=== PATIENT | female | born 1990 | race Hispanic/Latino ===

== ENCOUNTER → 2018-05-14 | Day surgery (SDC) | payer OTHER ==
[2018-05-13 17:27] LABS: Urine Appearance CLOUDY; Urine Bilirubin NEGATIVE (NEG); Urine Blood NEGATIVE (NEG); Urine Color YELLOW; Urine Glucose NEGATIVE (NEG); Urine Protein NEGATIVE (NEG); Urine Specific Gravity 1.015 (1.005-1.030); Urine Urobilinogen 0.2 mg/dL (0.2-1.0); Urine pH 8.5 (5.0-7.0)
[2018-05-13 17:29] LABS: Urine Microscopic Reflex NO UMIC
[2018-05-13 17:30] LABS: Specific Gravity 1.015 (1.005-1.030)
[2018-05-13 17:30] LABS: Absolute Lymphocytes (CBC) 2.2 K/uL (0.7-4.9); Absolute Monocytes 0.3 K/uL (0.1-1.3); Absolute Neutrophil 4.3 K/uL (1.8-8.0); Basophils % 0.6 % (0-1.3); Hematocrit 34.9 % (36.0-45.0); Lymphocytes % 32.1 % (15.3-44.8); MPV 7.6 fL (7.6-11.3); Protime INR 1.05; RBC Red Blood Cell Count 3.81 M/uL (3.86-4.86)
[~2018-05-14] MED LIST: CEFAZOLIN/SWI 1gm 1 GM/10 ML SYR ONE; DEXAMETHASONE 4 MG/ML VIAL ONE; FENTANYL CITR 100 MCG/2 ML ONE; KETOROLAC 30 MG/ML INJ ONE; LIDOCAINE 1% MPF 5 ML VIAL ONE; LIDOCAINE 1.5% W/EPI AMP 5 ML ONE; MEPERIDINE HCL 50 MG/ML AMP ONE; MIDAZOLAM HCL 2 MG/2 ML INJ ONE; ONDANSETRON 4 MG/2 ML VIAL ONE; PROPOFOL 200 MG/20 ML VIAL IV ONE; Ringers Lactate 1,000 ML IV ONE; STRONG IODINE SOLN 15 ML BTL TOP ONE
--- NOTE | 2018-05-14 08:49 | PREOPHP ---
Date of Admission: 05/14/2018 History Of Present Illness: This is a 28-year-old female with cervical dysplasia for LEEP procedure. Full discussion concerning procedure and possible complications, including infection, failure to ge t all of the tissue removed, amputation of her IUD strings, which there is always a possibility. The patient knows fully well these do not constitute all the possible problems that could occur during o r following the surgery. Blood clots in the legs, also discussed. Family History: Basically noncontributory as far as this admission is concerned. Maternal grandmoth er with cancer of the stomach. Past Surgical History: The patient has had general anesthetic during breast surgery, wisdom teeth an d has never had any kind of anesthetic problems. Social History: Does not smoke. Physical Examination: HEENT: Clear. Pupils equal, round, and reactive to light and accommodation. Conjunctivae well perf used. No oral, lingual, or buccal lesions. Chest: Clear. Lungs: Clear. Heart: Without murmurs, thrills, heaves, or rubs. Breasts: Not examined on this visit. Extremities: Clear without edema, cyanosis, or clubbing. : Cervix with no obvious lesions. Assessment/plan: The patient does have 2 IUD strings. She has had the IUD for 3 years, knows that i f we amputate the strings that it will not affect the functioning of the IUD, but could make it more difficult to retrieve once it is time to come out. Biopsy was taken at the 12 o'clock area. We will make sure that area is the major part where we had the biopsy taken. DEREK/DAYRON Voice ID: [id number]
--- NOTE | 2018-05-14 18:15 | OP ---
Surgeon: Cesar Gonzales MD Preoperative Diagnosis: Cervical dysplasia, TI 2-3. Loop electrosurgical procedure. Indications: Full preoperative counseling concerning procedure and possible complications, including infection, blood loss, anesthetic complications, injury to bladder, bowel, ureter, postoperative com plications, clots in legs, and pneumonia. The patient knows fully well this does not constitute all the possible problems that could occur during or following surgery and knows that depending upon the LEEP specimen, she may require further followup and treatment. Anesthesia: General anesthesia endotracheal intubation. Procedure In Detail: Time-out performed, after prepping and draping and grounding pads placed. A LE EP procedure was done using the largest loop instrument available on the table. A good specimen was removed and fulguration was then performed at the base. She had been injected with 1.5% lidocaine an d epinephrine prior to the LEEP procedure. Astringent was applied, fulguration, and then a second ap plication of Astringent. Minimal blood loss. Observed for 2-3 more minutes after the second Astring ent application. No further bleeding seen. Procedure discontinued. The patient was sent to the rec overy room. Final Diagnosis: Cervical dysplasia, TI 2-3. loop electrosurgical procedure performed. Pathology: Pending. DEREK/DAYRON Voice ID: [id number] Report ID: [id number]
--- NOTE | 2018-05-14 18:21 | DS ---
Hospital Course: The patient underwent a LEEP procedure, general anesthesia, endotracheal intubation . Minimal blood loss, 1.5% lidocaine and epinephrine injected prior to the procedure. The specimen was removed, sent to Pathology. We will follow up pending on pathology report. The patient had an I UD in place and she knew that there was a possibility for amputation of the strings was possible, and indeed, strings, the visible part anyway has been removed. She knows this will make the removal of the IUD 2 years from now slightly more difficult, but she said she wished to proceed nonetheless. Final Diagnoses: Cervical dysplasia, TI 2-3. Loop electrosurgical procedure performed. DEREK/DAYRON Voice ID: [id number] Report ID: [id number]
== END | disposition home or self-care (01) ==
LOC: OR 06:14
PROVIDERS: ATTEND Specialist
PROC: 0UBC7ZX Excision of Cervix, Via Natural or Artificial Opening, Diagnostic (ICD-10-PCS; principal; 2018-05-14 07:30)
DX: D06.9 Carcinoma in situ of cervix, unspecified (principal); Z91.011 Allergy to milk products; Z80.0 Family history of malignant neoplasm of digestive organs
CPT/HCPCS: 36415; 81003; 81025; 85025; 85610; 85730; 86850; 86900; 86901; 88305; 88307; J0690; J2001; J2175; J2250; J2405; J2704; J3010

== ENCOUNTER 2018-05-18 12:43 | Emergency (ER) | payer OTHER ==
[2018-05-18] MEDS ORDERED: NA CHLORIDE 0.9% 1,000 ML ONE (13:21)
[2018-05-18] MEDS ORDERED: ONDANSETRON 4 MG/2 ML VIAL ONE ×2 (13:21→15:44)
[2018-05-18] MEDS ORDERED: FAMOTIDINE 20 MG/2 ML VIAL IV ONE (13:21)
[2018-05-18 13:51] LABS: Absolute Lymphocytes (CBC) 1.6 K/uL (0.7-4.9); Absolute Monocytes 0.4 K/uL (0.1-1.3); Absolute Neutrophil 5.8 K/uL (1.8-8.0); Basophils % 0.7 % (0-1.3); Eosinophils % 1.5 % (0-4.4); MPV 7.8 fL (7.6-11.3); Monocytes % 5.3 % (3.3-12.3); RBC Red Blood Cell Count 3.74 M/uL (3.86-4.86)
[2018-05-18 14:15] LABS: Bilirubin Direct 0.3 mg/dL (0-0.2); Bilirubin Total 0.7 mg/dL (0.2-1.0); Magnesium 2.1 mg/dL (1.8-2.4); Potassium 3.8 mmol/L (3.5-5.1); Protein, Total 7.7 g/dL (6.4-8.2)
[2018-05-18 14:16] LABS: Urine Blood NEGATIVE (NEG); Urine Glucose NEGATIVE (NEG); Urine Protein TRACE (NEG)
--- NOTE | 2018-05-18 14:32 | RAD REPORT ---
EXAM DESCRIPTION: Rhina Single View05/18/2018 2:00 pm CLINICAL HISTORY: abd pain COMPARISON: none FINDINGS: The lungs appear clear of acute infiltrate. The heart is normal size IMPRESSION: No acute abnormalities displayed
--- NOTE | 2018-05-18 15:52 | RAD REPORT ---
EXAM DESCRIPTION: US - Abdomen Exam Limited - 05/18/2018 3:24 pm CLINICAL HISTORY: Abdominal pain. COMPARISON: 2012 FINDINGS: Multiple gallstones. Gallbladder wall borderline thickened Common bile duct measures 1 centimeter IMPRESSION: Cholelithiasis. Borderline gallbladder wall thickening may indicate cholecystitis Dilated common bile duct may be secondary to a stone within the duct
[2018-05-18] MEDS ORDERED: NA CHLORIDE 0.9% 500 ML ONE (16:07)
[2018-05-18] MEDS ORDERED: PROMETHAZINE 25 MG/ML VIAL ONE (16:07)
--- NOTE | 2018-05-18 16:30 | EDPHYS ---
Physician Documentation [facility] Name: Kenyetta Culver Age: 28 yrs Sex: Female : 1990 Arrival Date: 05/18/2018 Time: 12:46 Bed 19 Private MD: Rylan Sanabira ED Physician Pranav Smith HPI: 05/18 13:10 This 28 yrs old Female presents to ER via Ambulatory with complaints of cp Vomiting. 13:10 The patient presents to the emergency department with nausea, that is moderate, cp vomiting, that is intermittent, described as bilious, abdominal pain, of the epigastric area. Onset: The symptoms/episode began/occurred 3 day(s) ago. Possible causes: unknown. Associated signs and symptoms: Pertinent positives: abdominal pain, anorexia, Pertinent negatives: constipation, diarrhea, fever, GI bleeding. Severity of symptoms: in the emergency department the symptoms are unchanged despite home interventions. 13:10 Patient reports having LEEP procedure done by DR Fonseca this past Sunday with N/V and cp abdominal pain starting the next day. 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 - Social history:: Smoking status: Patient/guardian denies using tobacco. - Ebola Screening: : Patient denies exposure to infectious person Patient denies travel to an Ebola-affected area in the 21 days before illness onset. ROS: 13:15 Constitutional: Negative for body aches, chills, fever, poor PO intake. cp 13:15 Eyes: Negative for injury, pain, redness, and discharge. cp Exam: 13:20 Constitutional: The patient appears in no acute distress, alert, awake, cp non-diaphoretic, non-toxic, well developed, well nourished. 13:20 Head/Face: Normocephalic, atraumatic. cp 13:20 Eyes: Periorbital structures: appear normal, Conjunctiva: normal, no exudate, no injection, Sclera: no appreciated abnormality, Lids and lashes: appear normal, bilaterally. 13:20 ENT: External ear(s): are unremarkable, Nose: is normal, Mouth: Lips: moist, Oral mucosa: pink and intact, moist, Posterior pharynx: is normal, airway is patent, no erythema, no exudate. 13:20 Neck: ROM/movement: is normal, is supple, without pain, no range of motions limitations, no nuchal rigidity. 13:20 Chest/axilla: Inspection: normal, Palpation: is normal, no crepitus, no tenderness. 13:20 Cardiovascular: Rate: bradycardic, Rhythm: regular. 13:20 Respiratory: the patient does not display signs of respiratory distress, Respirations: normal, no use of accessory muscles, no retractions, no splinting, no tachypnea, labored breathing, is not present, Breath sounds: are clear throughout, no decreased breath sounds, no stridor, no wheezing. 13:20 Abdomen/GI: Inspection: abdomen appears normal, Bowel sounds: active, all quadrants, Palpation: soft, in all quadrants, moderate abdominal tenderness, in the epigastric area and right upper quadrant, rebound tenderness, is not appreciated, voluntary guarding, is elicited in the epigastric area and right upper quadrant. 13:20 Back: CVA tenderness, is absent. Vital Signs: 13:07 BP 118 / 78; Pulse 57; Resp 16; Temp 97.7(TE); Pulse Ox 100% on R/A; Weight 75.3 kg; ss Height 5 ft. 4 in. (162.56 cm); Pain 4/10; 14:00 BP 104 / 63; Pulse 56; Resp 16; Pulse Ox 98% on R/A; Pain 2/10; em 15:00 BP 102 / 58; Pulse 55; Resp 16; Pulse Ox 100% on R/A; Pain 2/10; em 15:45 BP 116 / 61; Pulse 58; Resp 18; Pulse Ox 99% on R/A; em 16:42 BP 112 / 77; Pulse 59; Resp 15; Temp 98.8(O); Pulse Ox 100% on R/A; Pain 4/10; em 13:07 Body Mass Index 28.49 (75.30 kg, 162.56 cm) ss MDM: 12:51 Patient medically screened. cp 16:00 Data reviewed: vital signs, nurses notes, lab test result(s), radiologic studies, cp ultrasound. 16:00 Counseling: I had a detailed discussion with the patient and/or guardian regarding: the cp historical points, exam findings, and any diagnostic results supporting the discharge/admit diagnosis, lab results, radiology results. Response to treatment: the patient's symptoms have markedly improved after treatment. 05/18 13:06 Order name: Basic Metabolic Panel; Complete Time: 14:36 cp 05/18 14:36 Interpretation: Normal except: CL 108; GLUC 114; GFR 74. cp 05/18 13:06 Order name: CBC with Diff; Complete Time: 14:16 cp 05/18 14:16 Interpretation: Normal except: WBC 8.0; RBC 3.74; HCT 34.0. cp 05/18 13:06 Order name: Creatinine for Radiology; Complete Time: 14:16 cp 05/18 13:06 Order name: Hepatic Function; Complete Time: 14:36 cp 05/18 14:36 Interpretation: Normal except: AST 285; ALT 711; ALK 118; BILID 0.3; GLOB 3.7. cp 05/18 13:06 Order name: Lipase; Complete Time: 14:36 cp 05/18 13:06 Order name: Magnesium; Complete Time: 14:36 cp 05/18 13:07 Order name: Urine Dipstick--Ancillary (enter results); Complete Time: 14:25 ms 05/18 13:07 Order name: Urine --Ancillary (enter results); Complete Time: 14:25 ms 05/18 13:09 Order name: XRAY Chest (1 view); Complete Time: 14:36 cp 05/18 14:32 Order name: US Abdomen Limited: RUQ/epigastric area; Complete Time: 15:56 cp 05/18 13:06 Order name: IV Saline Lock; Complete Time: 13:27 cp 05/18 13:06 Order name: Labs collected and sent; Complete Time: 13:27 cp 05/18 13:06 Order name: Urine Dipstick-Ancillary (obtain specimen); Complete Time: 13:08 cp 05/18 13:06 Order name: Urine Test (obtain specimen); Complete Time: 13:08 cp Administered Medications: 13:25 Drug: NS 0.9% 1000 ml Route: IV; Rate: 1 bolus; Site: right antecubital; ss 14:20 Follow up: IV Status: Completed infusion; IV Intake: 1000ml em 13:25 Drug: Zofran 4 mg Route: IVP; Site: right antecubital; ss 14:20 Follow up: Response: No adverse reaction; Marked relief of symptoms em 13:25 Drug: Pepcid 20 mg Route: IVP; Site: right antecubital; ss 14:21 Follow up: Response: No adverse reaction; Marked relief of symptoms em 15:40 Drug: Zofran 4 mg Route: IVP; Site: right antecubital; em 16:09 Follow up: Response: No adverse reaction; Nausea unchanged em 16:10 Drug: Promethazine 25 mg Route: IVP; Site: right antecubital; ss 17:05 Follow up: Response: Marked relief of symptoms em 16:41 Drug: Rocephin 1 grams Route: IV; Rate: bolus; Site: right antecubital; ss 17:04 Follow up: Response: No adverse reaction; IV Status: Completed infusion; IV Intake: 10mlem Disposition: 05/18/18 16:30 Transfer ordered to [facility]. Diagnosis are Cholelithiasis, Elevated liver enzymes. - Reason for transfer: Higher level of care. - Accepting physician is DR Lind. - Condition is Stable. - Problem is new. - Symptoms have improved. Addendum: 05/22/2018 21:48 Co-signature as Attending Physician, Pranav Smith MD. g s Signatures: Dispatcher [employer] Esvin Harrison, GLOBAL CLIMATE CHANGE ANALYST GLOBAL CLIMATE CHANGE ANALYST Rita Roberto RN RN ss Sam Tenorio PA PA Pranav Beckett MD MD gs Corrections: (The following items were deleted from the chart) 05/18 17:42 16:30 05/18/2018 16:30 Transfer ordered to [facility]. Diagnosis is ss Cholelithiasis; Elevated liver enzymes. Reason for transfer: Higher level of care. Accepting physician is DR Lind. Condition is Stable. Problem is new. Symptoms have improved. cp
--- NOTE | 2018-05-18 16:30 | ER ---
Nurse's Notes [facility] Name: Kenyetta Culver Age: 28 yrs Sex: Female : 1990 Arrival Date: 05/18/2018 Time: 12:46 Bed 19 Private MD: Rylan Sanabria Diagnosis: Cholelithiasis;Elevated liver enzymes Presentation: 05/18 13:01 Presenting complaint: Patient states: "I had a LEEP procedure Sunday and the next day ss I just started vomiting. When I eat my stomach hurts until it's out of me. I've tried suppositories and patches for the nausea, but it's constant and my stomach hurts constantly too.". Transition of care: patient was not received from another setting of care. Onset of symptoms was May 14, 2018. Risk Assessment: Do you want to hurt yourself or someone else? Patient reports no desire to harm self or others. Initial Sepsis Screen: Does the patient meet any 2 criteria? No. Patient's initial sepsis screen is negative. Does the patient have a suspected source of infection? No. Patient's initial sepsis screen is negative. Care prior to arrival: None. 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 - Social history:: Smoking status: Patient/guardian denies using tobacco. - Ebola Screening: : Patient denies exposure to infectious person Patient denies travel to an Ebola-affected area in the 21 days before illness onset. Screenin:15 Abuse screen: Denies threats or abuse. Nutritional screening: No deficits noted. em Tuberculosis screening: No symptoms or risk factors identified. Fall Risk None identified. Assessment: 13:15 General: Appears in no apparent distress. comfortable, Behavior is calm, cooperative, em Denies fever. Pain: Complains of pain in epigastric area, right upper quadrant and left upper quadrant Pain currently is 4 out of 10 on a pain scale. Quality of pain is described as aching, dull. Neuro: Level of Consciousness is awake, alert, obeys commands, Oriented to person, place, time, situation, Appropriate for age Gait is steady. Cardiovascular: Denies chest pain, Capillary refill < 3 seconds Patient's skin is warm and dry. Respiratory: Airway is patent Respiratory effort is even, unlabored, Respiratory pattern is regular, symmetrical. GI: Abdomen is flat, Bowel sounds present X 4 quads. Abd is soft X 4 quads Abdomen is tender to palpation in epigastric area, right upper quadrant and left upper quadrant Reports intolerance of food, nausea, vomiting, Patient currently denies diarrhea. : No signs and/or symptoms were reported regarding the genitourinary system. Urine is clear. EENT: Nares are clear Oral mucosa is moist. Derm: Skin is intact, is healthy with good turgor, Skin is pink, warm \\T\\ dry. Musculoskeletal: Capillary refill < 3 seconds, Range of motion: intact in all extremities. 13:20 General: The previous assessment is accurate, call light remains within reach. . ss 14:07 Reassessment: Patient appears in no apparent distress at this time. Patient and/or em family updated on plan of care and expected duration. Pain level reassessed. Patient is alert, oriented x 3, equal unlabored respirations, skin warm/dry/pink. rates pain 2/10 Patient states feeling better. Patient states symptoms have improved. 14:32 Reassessment: Received lab alert for ALT 711; provider Page notified. rb1 15:05 Reassessment: Patient appears in no apparent distress at this time. Patient and/or em family updated on plan of care and expected duration. Pain level reassessed. Patient is alert, oriented x 3, equal unlabored respirations, skin warm/dry/pink. Patient states feeling better. 15:32 Reassessment: Patient appears in no apparent distress at this time. reports nausea and em pain after US, provider notified, new medication orders received, currently dry heaving. 16:00 Reassessment: Patient appears in no apparent distress at this time. reports nausea em medication has not helped symptoms, provider notified, new medication orders received, promethazine 25 mg to be given in a 500 mL bag on 0.9% NS at once. 16:35 Reassessment: Patient appears in no apparent distress at this time. Patient and/or em family updated on plan of care and expected duration. Pain level reassessed. Patient is alert, oriented x 3, equal unlabored respirations, skin warm/dry/pink. reports nausea has improved Patient states symptoms have improved. 16:49 Reassessment: report given to RUBINA Gruber at [facility], pending transportation. em Vital Signs: 13:07 BP 118 / 78; Pulse 57; Resp 16; Temp 97.7(TE); Pulse Ox 100% on R/A; Weight 75.3 kg; ss Height 5 ft. 4 in. (162.56 cm); Pain 4/10; 14:00 BP 104 / 63; Pulse 56; Resp 16; Pulse Ox 98% on R/A; Pain 2/10; em 15:00 BP 102 / 58; Pulse 55; Resp 16; Pulse Ox 100% on R/A; Pain 2/10; em 15:45 BP 116 / 61; Pulse 58; Resp 18; Pulse Ox 99% on R/A; em 16:42 BP 112 / 77; Pulse 59; Resp 15; Temp 98.8(O); Pulse Ox 100% on R/A; Pain 4/10; em 13:07 Body Mass Index 28.49 (75.30 kg, 162.56 cm) ED Course: 12:46 Patient arrived in ED. mr 12:47 Rylan Sanabria MD is Private Physician. mr 12:50 [facility] Ten[facility]. cp 12:50 Pranav Smith MD is Attending Physician. cp 12:58 Esvin Calle LVN is Primary Nurse. em 13:04 Triage completed. ss 13:07 Arm band placed on right wrist. ss 13:15 Patient has correct armband on for positive identification. Placed in gown. Bed in low em position. Call light in reach. Side rails up X2. Pulse ox on. NIBP on. 13:15 Initial lab(s) drawn, by me, sent to lab. Urine collected: clean catch specimen, clear. em Inserted saline lock: 20 gauge in right antecubital area, using aseptic technique. Blood collected. 14:00 XRAY Chest (1 view) In Process Unspecified. EDMS 15:24 US Abdomen Limited: RUQ/epigastric area In Process Unspecified. EDMS 15:25 Ultrasound completed. Patient tolerated well. Notified LAND LEVELER/PA coby. sg3 17:02 No provider procedures requiring assistance completed. Patient transferred, IV remains em in place. Administered Medications: 13:25 Drug: NS 0.9% 1000 ml Route: IV; Rate: 1 bolus; Site: right antecubital; ss 14:20 Follow up: IV Status: Completed infusion; IV Intake: 1000ml em 13:25 Drug: Zofran 4 mg Route: IVP; Site: right antecubital; ss 14:20 Follow up: Response: No adverse reaction; Marked relief of symptoms em 13:25 Drug: Pepcid 20 mg Route: IVP; Site: right antecubital; ss 14:21 Follow up: Response: No adverse reaction; Marked relief of symptoms em 15:40 Drug: Zofran 4 mg Route: IVP; Site: right antecubital; em 16:09 Follow up: Response: No adverse reaction; Nausea unchanged em 16:10 Drug: Promethazine 25 mg Route: IVP; Site: right antecubital; ss 17:05 Follow up: Response: Marked relief of symptoms em 16:41 Drug: Rocephin 1 grams Route: IV; Rate: bolus; Site: right antecubital; ss 17:04 Follow up: Response: No adverse reaction; IV Status: Completed infusion; IV Intake: 10mlem Intake: 14:20 IV: 1000ml; Total: 1000ml. em 17:04 IV: 10ml; Total: 1010ml. em Outcome: 16:30 ER care complete, transfer ordered by . antonio 17:02 Transferred by ground EMS to [facility], Transfer form completed. em X-rays sent w/ patient. 17:02 Condition: good 17:02 Instructed on the need for transfer, Demonstrated understanding of instructions. 17:42 Patient left the ED. ss Signatures: Dispatcher [employer] EDAK Mckenna Quach, Esvin, AUTOMOBILE MECHANIC AUTOMOBILE MECHANIC em Rita Herrera RN RN Coby, SCOTTIE Vargas cp, Rebecca, RN RN [facility] Nikki Hamilton sg3
[2018-05-18] MEDS ORDERED: CEFTRIAXONE/SWI 1gm 1 GM/10 ML SYR ONE (16:40)
== END 2018-05-18 17:42 | disposition short-term general hospital (02) ==
LOC: ER 12:43
DX: K80.20 Calculus of gallbladder without cholecystitis without obstruction (principal); R74.8 Abnormal levels of other serum enzymes; F41.9 Anxiety disorder, unspecified; Z98.890 Other specified postprocedural states
CPT/HCPCS: 36415; 71045; 76705; 80048; 80076; 81003; 81025; 83690; 83735; 85025; 96361; 96365; 96375; 99285; J0696; J2405; J2550; J7030

== ENCOUNTER 2024-03-11 09:31 | Emergency (ER) | payer BC, OTHER ==
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
[2024-03-14 01:14] VITALS: BP 123/70; TEMP 98.2; O2SAT 100
== END 2024-03-11 10:07 | disposition home or self-care (01) ==
LOC: ER 09:31
DX: M54.50 Low back pain, unspecified (principal); V49.49XA Driver injured in collision with other motor vehicles in traffic accident, initial encounter
CPT/HCPCS: 99284